=== PATIENT | male | born 1995 | race Caucasian/White ===

== ENCOUNTER 2022-11-11 17:11 | Emergency (ER) | payer OTHER, SELFPAY ==
[2022-11-11 17:15] VITALS: BP 128/56; PULSE 75; RESP 18; TEMP 36.9; O2SAT 97; BMI 26.1
--- NOTE | 2022-11-11 17:21 | PC.NURSE ---
This RN with Nikole STARKS in room for assessment of genital area due to pt's complaint of rash worse in that area.
--- NOTE | 2022-11-11 17:26 | ED.GENADUL1 ---
Documented by User: TEREZA Bhardwaj 11/11/22 17:32 HPI - General Adult General Chief complaint: Skin/Abscess/Foreign Body Stated complaint: RASH Time Seen by Provider: 11/11/22 17:17 Source: patient Mode of arrival: walk-in Limitations: no limitations History of Present Illness HPI narrative: patient is a 27-year-old male who presents to the emergency department with a three-day history of skin rash. He reports redness, swelling and itching around his eyes as well as on his abdomen, genitals and forearms. He denies any new soaps or detergents. There has been no drainage from the rash. He has not had any swelling of the lips, tongue. He has had no open wounds. He took Benadryl last night prior to arrival with no improvement. No visual changes or drainage from the eyes. Related Data Home Medications Medication Instructions Recorded Confirmed buprenorphine HCl 8 mg sublingual 12 mg sublingual DAILY 11/11/22 11/11/22 tablet Previous Rx's Medication Instructions Recorded hydroxyzine HCl 25 mg tablet 25 mg PO Q6H PRN itching #20 tabs 11/11/22 prednisone 20 mg tablet 60 mg PO DAILY #12 tabs 11/11/22 Allergies Allergy/AdvReac Type Severity Reaction Status Date / Time No Known Drug Allergies Allergy Verified 11/11/22 17:17 Review of Systems ROS Constitutional Denies: fever or chills Ears, nose, mouth, and throat Denies: throat pain Respiratory Denies: shortness of breath or cough Gastrointestinal Denies: nausea or vomiting Musculoskeletal Denies: back pain Integumentary/Breast Reports: rash and itching Neurological Denies: headache Exam Narrative Exam Narrative: Gen.: Awake, alert, in no distress; patient examined with Gui Shen RN at bedside for the duration of the exam Head: Normocephalic, atraumatic ENT: Moist mucous membranes Respiratory: No respiratory distress Extremities: Moves extremities equally Psych: Normal mood and affect Neuro: No focal neuro deficit Skin: Warm, dry, intact; erythematous linear vesicular rash faintly over the left abdomen, bilateral forearms very scarcely with mild edema and erythema of the eyelids. No conjunctival injection or drainage. No petechiae or purpura. No mucous membrane involvement. No open wounds, redness or evidence of secondary infection. No extension of the rash to the palms of the hands. Genital exam with no visible lesions or wounds. Constitutional Vital Signs, click to edit/add: Last Vital Signs Temp 98.4 F 11/11/22 17:15 Pulse 75 11/11/22 17:15 Resp 18 11/11/22 17:15 BP 128/56 11/11/22 17:15 Pulse Ox 97 11/11/22 17:15 O2 Del Method Room Air 11/11/22 17:15 Course Vital Signs Vital signs: Vital Signs Temperature 98.4 F 11/11/22 17:15 Pulse Rate 75 11/11/22 17:15 Respiratory Rate 18 11/11/22 17:15 Blood Pressure 128/56 11/11/22 17:15 Pulse Oximetry 97 11/11/22 17:15 Oxygen Delivery Method Room Air 11/11/22 17:15 Temperature 98.4 F 11/11/22 17:15 Pulse Rate 75 11/11/22 17:15 Respiratory Rate 18 11/11/22 17:15 Blood Pressure 128/56 11/11/22 17:15 Pulse Oximetry 97 11/11/22 17:15 Oxygen Delivery Method Room Air 11/11/22 17:15 Medical Decision Making MDM Narrative Medical decision making narrative: exam is consistent with a mild skin rash, contact dermatitis. Patient started on a prednisone taper and antihistamines. Follow-up with PCP and return to the Emergency Room if symptoms change or worsen Medical Records Medical records reviewed: Yes I reviewed the patient's medical records Discharge Plan Discharge Chief Complaint: Skin/Abscess/Foreign Body Clinical Impression: Skin rash, Contact dermatitis Patient Disposition: Home, Self-Care Time of Disposition Decision: 17:24 Condition: Good Prescriptions / Home Meds: New prednisone 20 mg tablet 60 mg PO DAILY Qty: 12 0RF Rx Instructions: 3 tabs daily for 2 days, then 2 tabs daily for 2 days, then 1 tab daily for 2 days hydroxyzine HCl 25 mg tablet 25 mg PO Q6H PRN (Reason: itching) Qty: 20 0RF No Action buprenorphine HCl 8 mg tablet, sublingual 12 mg sublingual DAILY Instructions: Contact Dermatitis (ED), Acute Rash (ED) Stand Alone Forms: Portal Instructions Referrals: CAPRI GERARD [Primary Care Provider] - 1 week Discharge Date/Time: 11/11/22 17:49 Documented by User: Tiffany Nguyen MD 11/13/22 08:39 HPI - General Adult General Chief complaint: Skin/Abscess/Foreign Body Stated complaint: RASH Time Seen by Provider: 11/11/22 17:17 Related Data Home Medications Medication Instructions Recorded Confirmed buprenorphine HCl 8 mg sublingual 12 mg sublingual DAILY 11/11/22 11/11/22 tablet Previous Rx's Medication Instructions Recorded hydroxyzine HCl 25 mg tablet 25 mg PO Q6H PRN itching #20 tabs 11/11/22 prednisone 20 mg tablet 60 mg PO DAILY #12 tabs 11/11/22 Allergies Allergy/AdvReac Type Severity Reaction Status Date / Time No Known Drug Allergies Allergy Verified 11/11/22 17:17 Exam Constitutional Vital Signs, click to edit/add: Last Vital Signs Temp 98.4 F 11/11/22 17:15 Pulse 75 11/11/22 17:15 Resp 18 11/11/22 17:15 BP 128/56 11/11/22 17:15 Pulse Ox 97 11/11/22 17:15 O2 Del Method Room Air 11/11/22 17:15 Course Vital Signs Vital signs: Vital Signs Temperature 98.4 F 11/11/22 17:15 Pulse Rate 75 11/11/22 17:15 Respiratory Rate 18 11/11/22 17:15 Blood Pressure 128/56 11/11/22 17:15 Pulse Oximetry 97 11/11/22 17:15 Oxygen Delivery Method Room Air 11/11/22 17:15 Temperature 98.4 F 11/11/22 17:15 Pulse Rate 75 11/11/22 17:15 Respiratory Rate 18 11/11/22 17:15 Blood Pressure 128/56 11/11/22 17:15 Pulse Oximetry 97 11/11/22 17:15 Oxygen Delivery Method Room Air 11/11/22 17:15 Medical Decision Making MDM Narrative Medical decision making narrative: exam is consistent with a mild skin rash, contact dermatitis. Patient started on a prednisone taper and antihistamines. Follow-up with PCP and return to the Emergency Room if symptoms change or worsen Attending physician attestation I have reviewed the mid-level documentation, agree with the documentation, medical decision making and treatment plan as outlined by the mid-level provider. Discharge Plan Discharge Chief Complaint: Skin/Abscess/Foreign Body Clinical Impression: Skin rash, Contact dermatitis Patient Disposition: Home, Self-Care Time of Disposition Decision: 17:24 Condition: Good Prescriptions / Home Meds: New prednisone 20 mg tablet 60 mg PO DAILY Qty: 12 0RF Rx Instructions: 3 tabs daily for 2 days, then 2 tabs daily for 2 days, then 1 tab daily for 2 days hydroxyzine HCl 25 mg tablet 25 mg PO Q6H PRN (Reason: itching) Qty: 20 0RF No Action buprenorphine HCl 8 mg tablet, sublingual 12 mg sublingual DAILY Instructions: Contact Dermatitis (ED), Acute Rash (ED) Stand Alone Forms: Portal Instructions Referrals: CAPRI GERARD [Primary Care Provider] - 1 week Discharge Date/Time: 11/11/22 17:49
== END 2022-11-11 17:49 | disposition home or self-care (01) ==
PROVIDERS: Emergency Provider Emergency Medicine; PCP Family Medicine
DX: L25.9 Unspecified contact dermatitis, unspecified cause (principal); Z79.899 Other long term (current) drug therapy
CPT/HCPCS: 99283

== ENCOUNTER 2022-11-13 17:35 | Emergency (ER) | payer OTHER, SELFPAY ==
[2022-11-13 17:38] VITALS: BP 115/60; PULSE 76; RESP 18; TEMP 36.4; O2SAT 97; BMI 24.7
--- NOTE | 2022-11-13 17:52 | ED_ITS ---
Documented by User: TEREZA Salvador 11/13/22 18:14 HPI - Eye Problem General Chief complaint: Eye Problems Stated complaint: Eye Discharge Time Seen by Provider: 11/13/22 17:36 Source: patient Mode of arrival: walk-in Limitations: no limitations History of Present Illness HPI Narrative: patient is a 27-year-old male presents to the Emergency Room with concerns of swelling to his right lower eyelid that is painful. Patient states he noted the symptoms the other day, states he tried to squeeze and pop the area which was exquisitely tender but did manage to get a puslike discharge from it. Patient notes the swelling is affecting his vision but he denies any eye pain or loss of vision. Patient reports having slight drainage this morning. Patient was recently seen in the Emergency Room on 11/11/22 for contact dermatitis. Patient admits he got the steroid prescription filled but only had three days worth of treatment. Patient denies any eye injury, but admits that he has been rubbing his eyes and getting only temporary relief with the hydroxyzine. Patient denies any other new medications, soaps ddetergents or lotions. Patient notes rashes to the bilateral forearms, legs and groin region. Also has rash on his chest. MD chief complaint: Reports other (pain is present to the right lower medial lid consistent with a stye); Denies foreign body Onset (ago): day(s) Onset description: Reports gradual Duration: Reports constant Eye Symptoms: Reports redness, itching and discharge Severity: moderate Related Data Home Medications Medication Instructions Recorded Confirmed buprenorphine HCl 8 mg sublingual 12 mg sublingual DAILY 11/11/22 11/11/22 tablet Previous Rx's Medication Instructions Recorded hydroxyzine HCl 25 mg tablet 25 mg PO Q6H PRN itching #20 tabs 11/11/22 prednisone 20 mg tablet 60 mg PO DAILY #12 tabs 11/11/22 cephalexin 500 mg capsule 500 mg PO Q6H 7 days #28 caps 11/13/22 cephalexin 500 mg capsule 500 mg PO Q6H 7 days #28 caps 11/13/22 erythromycin 5 mg/gram (0.5 %) eye 1 applic ophthalmic (eye) Q6H #3.5 11/13/22 ointment grams erythromycin 5 mg/gram (0.5 %) eye 1 applic ophthalmic (eye) Q6H 7 11/13/22 ointment days #3.5 grams ibuprofen 600 mg tablet 600 mg PO TID PRN pain #30 tabs 11/13/22 ibuprofen 600 mg tablet 600 mg PO TID PRN pain #30 tabs 11/13/22 Allergies Allergy/AdvReac Type Severity Reaction Status Date / Time No Known Drug Allergies Allergy Verified 11/11/22 17:17 Review of Systems ROS Constitutional Denies: fever or chills Eyes Reports: change in vision (swelling to right lower lid) and eye discharge; Denies: floaters Ears, nose, mouth, and throat Denies: throat pain or neck pain Cardiovascular Denies: chest pain Respiratory Denies: shortness of breath or cough Gastrointestinal Denies: abdominal pain or nausea Genitourinary Denies: painful urination Musculoskeletal Denies: back pain or neck pain Integumentary/Breast Reports: rash and itching; Denies: redness, skin pain, skin tenderness or skin swelling Psychiatric Denies: anxiety Hematologic/Lymphatic Denies: easy bruising Allergic/Immunologic Denies: throat swelling PFSH PFS Social History Smoking status: Current every day smoker Exam Narrative Exam Narrative: Vital Signs and nurse's notes are reviewed. The patient is not hypoxic. General: Alert, no acute distress, patient resting comfortably Skin: warm, intact, no pallor noted. The patient has evidence likely contact dermatitis with linear vesicular erythematous rash noted to the bilateral forearms, trunk. Patient has no periorbital erythema or evidence of cellulitis, extraocular movements are painless. Patient has prominent erythematous dye to the right lower leg medially well localized.no conjunctivae injection. Patient without tearing, actively itching eyes the bedside. The patient has no evidence of petechiae, or purpura. The patient has no sloughing of the skin. The patient does have blanching noted. The patient has no involvement of the palms, soles, or oral mucosa. Head: Normocephalic, atraumatic Eye: Normal conjunctiva, No exudates, extraocular movements intact without pain. No photophobia. Patient has localized tenderness to stye in the right lower medial lid. No evidence of periorbital cellulitis. Ears, nose, throat: moist mucous membranes, there is no involvement of the oral mucosa, there is no lip or tongue swelling. The patient has airway patent. The patient has no tonsillar hypertrophy or swelling to the posterior oropharynx. No evidence of Vesicles. Neck: The patient has no masses, warmth, or erythema. The patient has no meningeal signs. The patient has no nuchal rigidity noted. Cardiovascular: Regular Rate and Rhythm Respiratory: No acute distress, tachypnea, mild rhonchi and wheezing noted in bilateral lung kennedy. No round noted. No retractions or stridor. Musculoskeletal: Normal range of motion, no calf tenderness noted bilaterally, no edema noted. Negative Jc's sign bilaterally. no evidence of cyanosis or mottling noted to the extremities. Pulses intact. Neurological: alert and oriented x4, normal speech, normal motor, normal sensory Psychiatric: Cooperative Constitutional Vital Signs, click to edit/add: Last Vital Signs Temp 97.6 F 11/13/22 17:38 Pulse 76 11/13/22 17:38 Resp 18 11/13/22 17:38 BP 115/60 11/13/22 17:38 Pulse Ox 97 11/13/22 17:38 Course Vital Signs Vital signs: Vital Signs Temperature 97.6 F 11/13/22 17:38 Pulse Rate 76 11/13/22 17:38 Respiratory Rate 18 11/13/22 17:38 Blood Pressure 115/60 11/13/22 17:38 Pulse Oximetry 97 11/13/22 17:38 Temperature 97.6 F 11/13/22 17:38 Pulse Rate 76 11/13/22 17:38 Respiratory Rate 18 11/13/22 17:38 Blood Pressure 115/60 11/13/22 17:38 Pulse Oximetry 97 11/13/22 17:38 MDM - Eye Problem MDM Narrative Medical decision making narrative: patient had a recent Emergency Room visit states he was given prescription for steroids but only lasted three days. The pharmacist only gave me enough for three days to take. Patient concerned as his rash and itching persists. Cathy eable to IM Kenalog shot today. We discussed avoiding steroids in the near future given his recent treatment. Medication safety reviewed. He is to take Motrin for pain. We discussed taking medication with food. Localized thigh and the right lower lid recommend warm compresses multiple times daily as the most effective treatment. Given that he is consistently itching his eyes and with recent steroid treatment patient be placed on erythromycin ophthalmic to be used four times a day. Patient encouraged not to squeeze or try to pop his stye just gentle massage. Given patient's previous attempt to pop the area he'll be started on Keflex out of abundance of caution. Risks and benefits discussed The patient is to followup with primary care physician in next 2-3 days or to return to the emergency department should any of the signs or symptoms worsen or new symptoms develop. Patient had questions answered. The patient agrees with the following Diagnosis and Treatment plan and the patient will be discharged home. patient given local eye doctor to follow-up with and is to call Wednesday for an appointment or return to Emergency Room if symptoms worsen or new symptoms develop. Discharge Plan Discharge Chief Complaint: Eye Problems Clinical Impression: Contact dermatitis Hordeolum externum (stye) Qualifiers: Laterality: right Eyelid: lower Qualified Code(s): H00.012 - Hordeolum externum right lower eyelid Patient Disposition: Home, Self-Care Time of Disposition Decision: 17:55 Condition: Good Prescriptions / Home Meds: New ibuprofen 600 mg tablet 600 mg PO TID PRN (Reason: pain) Qty: 30 0RF erythromycin 5 mg/gram (0.5 %) ointment 1 applic ophthalmic (eye) Q6H 7 Days Qty: 3.5 1RF Rx Instructions: 1 cm ribbon to right eye 4 times a day cephalexin 500 mg capsule 500 mg PO Q6H 7 Days Qty: 28 0RF ibuprofen 600 mg tablet 600 mg PO TID PRN (Reason: pain) Qty: 30 0RF cephalexin 500 mg capsule 500 mg PO Q6H 7 Days Qty: 28 0RF erythromycin 5 mg/gram (0.5 %) ointment 1 applic ophthalmic (eye) Q6H Qty: 3.5 1RF Rx Instructions: 1 cm ribbon right eye 4 times a day No Action buprenorphine HCl 8 mg tablet, sublingual 12 mg sublingual DAILY prednisone 20 mg tablet 60 mg PO DAILY Qty: 12 0RF Rx Instructions: 3 tabs daily for 2 days, then 2 tabs daily for 2 days, then 1 tab daily for 2 days hydroxyzine HCl 25 mg tablet 25 mg PO Q6H PRN (Reason: itching) Qty: 20 0RF Instructions: Contact Dermatitis (ED), Stye (ED) Stand Alone Forms: Portal Instructions Referrals: PIERRE LAGUERRE [Physician] - As soon as possible CAPRI GERARD [Primary Care Provider] - 1 week Discharge Date/Time: 11/13/22 18:15 Documented by User: Tiffany Nguyen MD 11/13/22 18:25 HPI - Eye Problem General Chief complaint: Eye Problems Stated complaint: Eye Discharge Time Seen by Provider: 11/13/22 17:36 Related Data Home Medications Medication Instructions Recorded Confirmed buprenorphine HCl 8 mg sublingual 12 mg sublingual DAILY 11/11/22 11/11/22 tablet Previous Rx's Medication Instructions Recorded hydroxyzine HCl 25 mg tablet 25 mg PO Q6H PRN itching #20 tabs 11/11/22 prednisone 20 mg tablet 60 mg PO DAILY #12 tabs 11/11/22 cephalexin 500 mg capsule 500 mg PO Q6H 7 days #28 caps 11/13/22 cephalexin 500 mg capsule 500 mg PO Q6H 7 days #28 caps 11/13/22 erythromycin 5 mg/gram (0.5 %) eye 1 applic ophthalmic (eye) Q6H #3.5 11/13/22 ointment grams erythromycin 5 mg/gram (0.5 %) eye 1 applic ophthalmic (eye) Q6H 7 11/13/22 ointment days #3.5 grams ibuprofen 600 mg tablet 600 mg PO TID PRN pain #30 tabs 11/13/22 ibuprofen 600 mg tablet 600 mg PO TID PRN pain #30 tabs 11/13/22 Allergies Allergy/AdvReac Type Severity Reaction Status Date / Time No Known Drug Allergies Allergy Verified 11/11/22 17:17 PFSH PFSH Social History Smoking status: Current every day smoker Exam Constitutional Vital Signs, click to edit/add: Last Vital Signs Temp 97.6 F 11/13/22 17:38 Pulse 76 11/13/22 17:38 Resp 18 11/13/22 17:38 BP 115/60 11/13/22 17:38 Pulse Ox 97 11/13/22 17:38 Course Vital Signs Vital signs: Vital Signs Temperature 97.6 F 11/13/22 17:38 Pulse Rate 76 11/13/22 17:38 Respiratory Rate 18 11/13/22 17:38 Blood Pressure 115/60 11/13/22 17:38 Pulse Oximetry 97 11/13/22 17:38 Temperature 97.6 F 11/13/22 17:38 Pulse Rate 76 11/13/22 17:38 Respiratory Rate 18 11/13/22 17:38 Blood Pressure 115/60 11/13/22 17:38 Pulse Oximetry 97 11/13/22 17:38 MDM - Eye Problem MDM Narrative Medical decision making narrative: patient had a recent Emergency Room visit states he was given prescription for steroids but only lasted three days. The pharmacist only gave me enough for three days to take. Patient concerned as his rash and itching persists. Agreeable to IM Kenalog shot today. We discussed avoiding steroids in the near future given his recent treatment. Medication safety reviewed. He is to take Motrin for pain. We discussed taking medication with food. Localized thigh and the right lower lid recommend warm compresses multiple times daily as the most effective treatment. Given that he is consistently itching his eyes and with recent steroid treatment patient be placed on erythromycin ophthalmic to be used four times a day. Patient encouraged not to squeeze or try to pop his stye just gentle massage. Given patient's previous attempt to pop the area he'll be started on Keflex out of abundance of caution. Risks and benefits discussed The patient is to followup with primary care physician in next 2-3 days or to return to the emergency department should any of the signs or symptoms worsen or new symptoms develop. Patient had questions answered. The patient agrees with the following Diagnosis and Treatment plan and the patient will be discharged home. patient given local eye doctor to follow-up with and is to call Wednesday for an appointment or return to Emergency Room if symptoms worsen or new symptoms develop. Attending physician attestation I have reviewed the mid-level documentation, agree with the documentation, medical decision making and treatment plan as outlined by the mid-level provider. Discharge Plan Discharge Chief Complaint: Eye Problems Clinical Impression: Contact dermatitis Hordeolum externum (stye) Qualifiers: Laterality: right Eyelid: lower Qualified Code(s): H00.012 - Hordeolum externum right lower eyelid Patient Disposition: Home, Self-Care Time of Disposition Decision: 17:55 Condition: Good Prescriptions / Home Meds: New ibuprofen 600 mg tablet 600 mg PO TID PRN (Reason: pain) Qty: 30 0RF erythromycin 5 mg/gram (0.5 %) ointment 1 applic ophthalmic (eye) Q6H 7 Days Qty: 3.5 1RF Rx Instructions: 1 cm ribbon to right eye 4 times a day cephalexin 500 mg capsule 500 mg PO Q6H 7 Days Qty: 28 0RF ibuprofen 600 mg tablet 600 mg PO TID PRN (Reason: pain) Qty: 30 0RF cephalexin 500 mg capsule 500 mg PO Q6H 7 Days Qty: 28 0RF erythromycin 5 mg/gram (0.5 %) ointment 1 applic ophthalmic (eye) Q6H Qty: 3.5 1RF Rx Instructions: 1 cm ribbon right eye 4 times a day No Action buprenorphine HCl 8 mg tablet, sublingual 12 mg sublingual DAILY prednisone 20 mg tablet 60 mg PO DAILY Qty: 12 0RF Rx Instructions: 3 tabs daily for 2 days, then 2 tabs daily for 2 days, then 1 tab daily for 2 days hydroxyzine HCl 25 mg tablet 25 mg PO Q6H PRN (Reason: itching) Qty: 20 0RF Instructions: Contact Dermatitis (ED), Stye (ED) Stand Alone Forms: Portal Instructions Referrals: PIERRE LAGUERRE [Physician] - As soon as possible CAPRI GERARD [Primary Care Provider] - 1 week Discharge Date/Time: 11/13/22 18:15
[2022-11-13] MEDS: IBUPROFEN 600 MG TABLET PO (18:08)
[2022-11-13] MEDS: CEPHALEXIN 500 MG CAPSULE PO (18:08)
[2022-11-13] MEDS: TRIAMCINOLONE ACETONIDE 40 MG/ML VIAL 60 MG IM (18:09)
== END 2022-11-13 18:15 | disposition home or self-care (01) ==
PROVIDERS: Emergency Provider Emergency Medicine; PCP Family Medicine
DX: H00.012 Hordeolum externum right lower eyelid (principal); L25.9 Unspecified contact dermatitis, unspecified cause; F17.210 Nicotine dependence, cigarettes, uncomplicated; Z79.899 Other long term (current) drug therapy
CPT/HCPCS: 99283

== ENCOUNTER 2024-07-06 19:48 | Emergency (ER) | payer OTHER, SELFPAY ==
[2024-07-06 19:51] VITALS: BP 129/52; PULSE 68; TEMP 36.8; O2SAT 98; BMI 25.1
--- NOTE | 2024-07-06 20:07 | ED.GENADUL1 ---
HPI HPI - General Adult General Chief complaint: Extremity Injury, Lower Stated complaint: Extremity Injury, Lower Time Seen by Provider: 07/06/24 19:53 Source: patient Mode of arrival: walk-in History of Present Illness HPI narrative: 29-year-old male presents here with chief complaint of left lateral foot pain. Patient states he injured it yesterday while playing basketball. He states he has continued pain today now he has bruising soft tissue swelling noted pain is noted to the lateral aspect around the 4th and 5th metatarsal area. He has no previous fracture of this extremity. He has no ankle pain no toe pain. Related Data Home Medications ?Medication ?Instructions ?Recorded ?Confirmed buprenorphine HCl 8 mg sublingual 12 mg sublingual DAILY 11/11/22 11/11/22 tablet Previous Rx's ?Medication ?Instructions ?Recorded ibuprofen 800 mg tablet 800 mg PO Q8H PRN pain #30 tabs 07/06/24 Allergies Allergy/AdvReac Type Severity Reaction Status Date / Time No Known Drug Allergies Allergy Verified 07/06/24 19:54 Opioid HPI Opioid Management Most Recent Opioid Data: Last Pain Scale 8 11/13/22 18:08 11/13/22 Review of Systems ROS Narrative All Systems are negative except as noted/marked.All systems reviewed and otherwise negative PFSH PFSH Social History Smoking status: Current every day smoker Little interest or pleasure in doing things: not at all Feeling down, depressed, or hopeless: not at all Exam Narrative Exam Narrative: Nurses note and vital signs reviewed and patient is not hypoxic. General: The patient appears well and in no apparent distress. Patient is resting comfortably on cart. Skin: Warm, dry, no pallor noted. There is no rash noted. Head: Normocephalic, atraumatic Eye: Normal conjunctiva, no drainage, EOMI. PERRL Ears, Nose, Mouth, and Throat: oral mucosa is moist. Nares patent. Mouth without vesicles. Ear canals patent. Tm's without Erythema Cardiovascular: Regular Rate and Rhythm Musculoskeletal: Left foot swelling with minimal amount of redness, tender to palpation, no crepitus, no obvious dislocation. The patient has no evidence of calf tenderness, no pitting edema, symmetrical pulses noted bilaterally Neurological: A&O x4, normal speech Psychiatric: Cooperative Constitutional Vital Signs, click to edit/add: Last Vital Signs Temp 98.2 F 07/06/24 19:51 Pulse 68 07/06/24 19:51 Resp 16 07/06/24 19:51 BP 129/52 07/06/24 19:51 Pulse Ox 98 07/06/24 19:51 O2 Del Method Room Air 07/06/24 19:51 Course Vital Signs Vital signs: Vital Signs Temperature 98.2 F 07/06/24 19:51 Pulse Rate 68 07/06/24 19:51 Respiratory Rate 16 07/06/24 19:51 Blood Pressure 129/52 07/06/24 19:51 Pulse Oximetry 98 07/06/24 19:51 Oxygen Delivery Method Room Air 07/06/24 19:51 Temperature 98.2 F 07/06/24 19:51 Pulse Rate 68 07/06/24 19:51 Respiratory Rate 07/06/24 19:51 Blood Pressure 129/52 07/06/24 19:51 Pulse Oximetry 98 07/06/24 19:51 Oxygen Delivery Method Room Air 07/06/24 19:51 Medical Decision Making MDM Narrative Medical decision making narrative: 29-year-old male presents here with chief complaint of left lateral foot pain. Patient states he injured it yesterday while playing basketball. He states he has continued pain today now he has bruising soft tissue swelling noted pain is noted to the lateral aspect around the 4th and 5th metatarsal area. He has no previous fracture of this extremity. He has no ankle pain no toe pain. X-ray of the left foot shows a questionable 3rd and 4th metatarsal fracture. Patient placed in a posterior splint by myself. Extremity neurovascular intact before and after. Patient was given ibuprofen here in the requesting no narcotic medication. Also discharged home with prescription of ibuprofen. Patient encouraged to use rest ice elevation. He will follow-up with orthopedics on Wednesday at 1130 on June 09. Patient had no questions at discharge. Differential Diagnosis Differential Diagnosis: foot fracture, sprain Medical Records Medical records reviewed: Yes I reviewed the patient's medical records Lab Data Lab results reviewed: Yes I reviewed the patient's lab results Imaging Data foot : My impression: 3rd and 4th metatarsal fx Discharge Plan Discharge Chief Complaint: Extremity Injury, Lower Clinical Impression: Foot fracture, left Patient Disposition: Home, Self-Care Time of Disposition Decision: 20:45 Condition: Good Prescriptions / Home Meds: New ibuprofen 800 mg tablet 800 mg PO Q8H PRN (Reason: pain) Qty: 30 0RF No Action buprenorphine HCl 8 mg tablet, sublingual 12 mg sublingual DAILY Print Language: Somali Instructions: Foot Fracture in Adults (ED) Referrals: CAPRI GERARD [Primary Care Provider] - 1 week Yury Hernandez MD [Physician] - 07/10/24 11:30 am
[2024-07-06] MEDS: IBUPROFEN 600 MG TABLET PO (20:44)
== END 2024-07-06 20:52 | disposition home or self-care (01) ==
PROVIDERS: Emergency Provider Emergency Medicine; PCP Family Medicine
DX: S92.902A Unspecified fracture of left foot, initial encounter for closed fracture (principal); F17.200 Nicotine dependence, unspecified, uncomplicated; Y93.67 Activity, basketball
CPT/HCPCS: 29515; 73610; 73630; 99284

== ENCOUNTER 2024-09-11 16:26 | Emergency (ER) | payer OTHER, SELFPAY ==
[2024-09-11 16:44] VITALS: BP 179/73; PULSE 87; TEMP 37; O2SAT 98; BMI 24.1
== END 2024-09-11 18:00 | disposition left against medical advice (07) ==
PROVIDERS: Emergency Provider Emergency Medicine; PCP Family Medicine
DX: Z53.21 Procedure and treatment not carried out due to patient leaving prior to being seen by health care provider (principal)
CPT/HCPCS: 99281